=== PATIENT | male | born 1995 | race Caucasian/White ===

== ENCOUNTER 2020-02-09 09:05 | Outpatient (RCR) | payer BC, MEDICARE, MEDICAID, SELFPAY ==
--- NOTE | 2020-02-09 13:30 | MHC.PT.EP ---
[facility] [place] Office [place] Office [place] Office [address] Elsy Shine [address] [phone] F: [phone] F: [phone] F: [phone] F: [phone] Physical Therapy Plan of Care Date of Evaluation: 02/09/20 Date of Surgery: n/a Diagnosis: Thoracic spine pain Assessment: Patient is a 24 year old R handed male who presents with s/s consistent with thoracic spine pain after 8 month hospitalization and loss of >100 lbs. Patient past medical history includes onofre-danlos, bicep repair, asthma, perforated sigmoid. Current impairments include pain, posture, joint mobility, flexibility, strength, activity tolerance and functional mobility. Functional limitations include decreased ability to walk, stand, transfer, negotiate stairs, study, and read. Patient is motivated with good rehab potential. Skilled PT will address impairments and functional limitations in order to achieve goals. Frequency and Duration: The patient will be seen 2x/week for 6 weeks Short Term Goals: I with HEP - 2 weeks Improved postural awareness - 2 weeks Min pec tightness - 3 weeks Max pain 4/10 with ADLs/daily routine - 3 weeks Correction Goals: MT/LT 4/5 b/l - 5 weeks LS trigger point absent - 5 weeks 2/10 max pain with ADLs/daily routine - 6 weeks Treatment Plan: Modalities to reduce pain, spasms and effusion. Manual therapy to restore motion and function. Therapeutic exercise to improve strength and flexibility. Neuromuscular re-education for posture and balance. Therapeutic activities to return to functional activities of daily living. Please sign and return to therapist. Thank you for your referral.
--- NOTE | 2020-02-22 08:10 | MHC.PT.DC ---
[facility] [place] Office [place] Office [place] Office [address] Elsy Shine 140 [facility] [phone] F: [phone] F: [phone] F: [phone] F: [phone] Physical Therapy Discharge Report Diagnosis: Thoracic spine pain Date of Surgery: n/a Date of Evaluation: 02/02/20 Date of Discharge: 02/22/20 Treatments to Date: 1 Cancellations to Date: No Shows to Date: Discharge Status: Visit Non-compliance Discharge Summary: Pt no showed all follow up appointments. Electronically signed by: Fernando Vela PT Please sign and return to therapist. Thank you for your referral.
== END 2020-02-22 08:10 | disposition home or self-care (01) ==
LOC: HO.PTCHIC 09:05
PROVIDERS: PCP Internal Medicine; Visit Provider Internal Medicine
DX: M54.6 Pain in thoracic spine (principal); G89.29 Other chronic pain
CPT/HCPCS: 97110; 97162

== ENCOUNTER 2021-12-13 12:57 | Outpatient (REF) | payer MEDICARE, BC, MEDICAID, SELFPAY ==
[2021-12-13 13:36] LABS: Binax Internal Control QC Valid; Binax Now Covid-19 Ag Negative (Negative)
== END 2021-12-13 12:58 | disposition home or self-care (01) ==
LOC: HO.HMGCLDS 12:57
PROVIDERS: PCP Internal Medicine
DX: Z20.822 Contact with and (suspected) exposure to COVID-19 (principal); R05.9 Cough, unspecified
CPT/HCPCS: 87811

== ENCOUNTER 2021-12-18 13:14 | Outpatient (REF) | payer MEDICARE, BC, MEDICAID, SELFPAY ==
--- NOTE | 2021-12-18 14:14 | PFT_ITS ---
FLOWS: FEV1 68% of predicted at 3.14 L. FVC 85% of predicted at 4.83 L. FEV1 to FVC ratio of 0.65. Positive bronchodilator response. LUNG VOLUMES: Total lung capacity 90% of predicted at 6.31 L. Residual volume 103% of predicted at 1.63 L. Slow vital capacity 86% of predicted at 4.69 L. Expiratory reserve volume 111% of predicted at 2.04 L. Diffusion capacity is normal. IMPRESSION: Moderate obstructive ventilatory defect with positive bronchodilator response. MD GILBERT Rodrigues/MODL / [id number]
== END 2021-12-18 13:15 | disposition home or self-care (01) ==
LOC: HO.RESP 13:14
PROVIDERS: Visit Provider Internal Medicine
DX: J45.909 Unspecified asthma, uncomplicated (principal)
CPT/HCPCS: 94060; 94727; 94729

== ENCOUNTER 2022-01-04 13:24 | Outpatient (REF) | payer MEDICARE, BC, MEDICAID, SELFPAY ==
[2022-01-04 16:23] LABS: MANUAL DIFF FLAG NO
[2022-01-04 16:31] LABS: Basophils Absolute Auto 0.1 X10*3/uL (0.0-0.2); Basophils Percent Auto 1.3 % (0-2); Eosinophils Percent Auto 12.8 % (0-4); Hemoglobin 16.7 g/dl (14.0-18.0); Imm Gran Abs Auto 0.01 X10*3/uL (0.00-0.03); Imm Gran Pct Auto 0.1 % (0.0-0.4); Lymphocytes Absolute Auto 2.1 X10*3/uL (1.2-4.9); Lymphocytes Percent Auto 27.7 % (20-40); Mean Corpuscular HGB Conc 34.1 g/dl (31.0-36.0); Mean Corpuscular Hemoglobin 27.8 pg (27.0-33.0); Mean Corpuscular Volume 81.7 fL (80.0-98.0); Mean Platelet Volume 10.5 fL (9.4-12.4); Monocytes Absolute Auto 0.5 X10*3/uL (0.1-1.2); Monocytes Percent Auto 6.9 % (2-11); Neutrophils Absolute Auto 3.8 x10*3/uL (2.0-8.3); Neutrophils Percent Auto 51.2 % (45-73); Platelet Count 302 X10*3/uL (160-400); White Blood Count 7.4 X10*3/uL (4.8-10.8)
[2022-01-04 16:38] LABS: Alanine Aminotransferase 25 U/L (0-40); Albumin Level 4.9 g/dL (3.5-5.0); Alkaline Phosphatase 78 U/L (39-117); Anion Gap 17 (12-20); Aspartate Amino Transferase 23 U/L (5-37); Bilirubin Total 1.8 mg/dL (0.0-1.0); Blood Urea Nitrogen 12 mg/dL (9-16); Calcium 10.2 mg/dL (8.4-10.2); Carbon Dioxide 27 mmol/L (22-29); Chloride 102 mmol/L (96-108); Cholesterol 230 mg/dL; Estimated Glomerular Filt Rate > 60; Glucose Fasting 80 mg/dL (60-99); HDL Cholesterol 46 mg/dL; LDL Cholesterol Calculated 154 mg/dl; Potassium 4.8 mmol/L (3.3-5.1); Sodium 141 mmol/L (135-145); Total Protein 8.1 g/dL (6.5-8.0); Triglycerides 154 mg/dL
[2022-01-04 17:01] LABS: TSH reflex Free T4 1.12 uIU/mL (0.32-4.0)
== END 2022-01-04 13:25 | disposition home or self-care (01) ==
LOC: HO.HMGCLDS 13:24
PROVIDERS: PCP Internal Medicine; Visit Provider Internal Medicine
DX: Z00.00 Encounter for general adult medical examination without abnormal findings (principal)
CPT/HCPCS: 36415; 80053; 80061; 84443; 85025

== ENCOUNTER 2022-02-01 17:37 | Outpatient (REF) | payer MEDICARE, BC, MEDICAID, SELFPAY ==
[2022-02-01 18:47] LABS: Influenza A PCR NEGATIVE (Negative); Influenza B PCR NEGATIVE (Negative); Resp Syncy Virus RNA Qual PCR NEGATIVE (Negative); SARS COV2 PCR INHOUSE NEGATIVE (Negative)
== END 2022-02-01 17:38 | disposition home or self-care (01) ==
LOC: HO.LNP 17:37
PROVIDERS: Visit Provider Internal Medicine
DX: Z20.822 Contact with and (suspected) exposure to COVID-19 (principal); R43.9 Unspecified disturbances of smell and taste
CPT/HCPCS: 0241U